=== PATIENT | female | born 1965 | race Caucasian/White ===

== ENCOUNTER 2023-09-02 16:08 | Emergency (ER) | payer OTHER, SELFPAY ==
--- NOTE | ~2023-09-02 | CT_ITS ---
EXAMINATION: CT ABDOMEN AND PELVIS WITHOUT CONTRAST CLINICAL INFORMATION: Right flank pain. COMPARISON: None available. TECHNIQUE: Multidetector volumetric imaging was performed from the superior aspect of the liver through the pubic symphysis. Sagittal and coronal reformatted images were obtained on the technologist's workstation. This CT examination was performed using dose optimization techniques as appropriate, variously including the following: *Automated exposure control *Adjustment of mA and/or kV according to patient size (this includes techniques or standardized protocols for targeted exams where dose is matched to indication/reason for exam; i.e. extremities or head) *Use of iterative reconstruction technique DLP: 465 mGy-cm FINDINGS: LUNG BASES: The visualized lung bases are unremarkable. LIVER, GALLBLADDER, AND BILIARY TREE: The liver is normal in size, shape, and attenuation. No focal hepatic lesion or biliary ductal dilatation is present. The gallbladder is unremarkable with no evidence of radiopaque gallstones, gallbladder wall thickening, or obvious pericholecystic inflammatory changes. PANCREAS: Unremarkable. SPLEEN: Unremarkable. ADRENAL GLANDS: Unremarkable. KIDNEYS AND URETERS: The kidneys are normal in size, shape, and attenuation. No hydronephrosis, hydroureter, or calculi seen. There is mild bilateral perinephric fat stranding. BLADDER: Unremarkable. GASTROINTESTINAL TRACT: Stomach, small bowel, and colon are normal in caliber. No bowel wall thickening or surrounding inflammatory changes. Appendix is normal. No intraperitoneal free fluid or free air. ABDOMINAL WALL: Small fat-containing right inguinal hernia. No bowel involvement. LYMPH NODES: Normal. VASCULAR: Unremarkable. PELVIC VISCERA: Uterus is surgically absent. There is a 2.3 x 2.3 x 2.2 cm fat-containing lesion at the right ovary, most consistent with a dermoid cyst. OSSEOUS STRUCTURES: Grade 1 anterolisthesis of L4 on L5. Mild left convex lumbar scoliosis. Severe degenerative disc disease at L5-S1. Marked multilevel facet arthropathy in the lumbar spine. CT/CT abdomen pelvis wo IV con IMPRESSION: 1. No acute intra-abdominal or intrapelvic abnormalities. No nephrolithiasis or evidence of obstructive uropathy. 2. A 2.3 cm fat-containing lesion in the right ovary, most consistent with a dermoid cyst. 3. Small fat-containing right inguinal hernia. Fleischner guidelines were followed.
[2023-09-02 16:13] VITALS: BP 124/78; BP 124/92; PULSE 103; PULSE 96; RESP 22; TEMP 37.2; O2SAT 100; O2SAT 97; BMI 25.2
[2023-09-02 16:40] LABS: MANUAL DIFF FLAG NO
[2023-09-02 16:41] LABS: Basophils Percent Auto 0.3 % (0-2); Eosinophils Percent Auto 0.2 % (0-4); Hematocrit 39.4 % (37.0-47.0); Hemoglobin 14.5 g/dl (12.0-16.0); Imm Gran Abs Auto 0.07 X10*3/uL (0.00-0.03); Imm Gran Pct Auto 0.6 % (0.0-0.4); Lymphocytes Absolute Auto 1.2 X10*3/uL (1.2-4.9); Lymphocytes Percent Auto 10.1 % (20-40); Mean Corpuscular HGB Conc 36.8 g/dl (31.0-35.0); Mean Corpuscular Hemoglobin 36.3 pg (27.0-33.0); Mean Corpuscular Volume 98.7 fL (80.0-98.0); Mean Platelet Volume 8.7 fL (9.4-12.3); Monocytes Absolute Auto 0.8 X10*3/uL (0.1-1.2); Monocytes Percent Auto 6.7 % (2-11); Neutrophils Absolute Auto 9.5 x10*3/uL (2.0-8.3); Neutrophils Percent Auto 82.1 % (45-73); Platelet Count 289 X10*3/uL (160-400); Red Blood Count 3.99 X10*6/uL (4.20-5.50); Red Cell Distribution Width 12.6 % (11.0-16.0); White Blood Count 11.5 X10*3/uL (4.8-10.8)
[2023-09-02 16:44] LABS: Appearance Urine Clear; Color Urine Yellow; Glucose Urine UA Negative (Negative); Leukocyte Esterase Urine Negative (Negative); Nitrite Urine Negative (Negative); PH >= 9.0 (5.0-9.0); Specific Gravity - Urine 1.015 (1.005-1.025); UMIC TRIGGER UACC YES; Urine Blood Negative (Negative); Urine Ketones 15 mg/dL (Negative); Urine Protein 30 (1+) mg/dL (Neg-Trace)
[2023-09-02 17:00] LABS: Alanine Aminotransferase 49 U/L (0-31); Albumin Level 4.4 g/dL (3.5-5.0); Alkaline Phosphatase 82 U/L (39-117); Anion Gap 20 (12-20); Aspartate Amino Transferase 66 U/L (5-31); Bacteria Urine None Seen (None Seen); Bilirubin Total 0.8 mg/dL (0.0-1.0); Blood Urea Nitrogen 9 mg/dL (9-16); Calcium 10.4 mg/dL (8.4-10.2); Carbon Dioxide 21 mmol/L (22-29); Chloride 100 mmol/L (96-108); Estimated Glomerular Filt Rate > 60; Glucose Random 125 mg/dL (60-115); Hyaline Casts Urine 0-2 /LPF (0-2); Potassium 3.7 mmol/L (3.3-5.1); RBC Urine 0-2 /HPF (0-2); Sodium 137 mmol/L (135-145); Total Protein 7.8 g/dL (6.5-8.0); WBC Urine 0-5 /HPF (0-5)
[2023-09-02 20:50] VITALS: BP 132/76; PULSE 79; RESP 17; TEMP 36.8; O2SAT 96
--- NOTE | 2023-09-02 21:30 | ED.ABDPAIN ---
HPI - Abdominal Pain General Chief Complaint: Abdominal Pain Stated Complaint: LOW R BACK PAIN 8/10 PER EMS Time Seen by Provider: 09/02/23 21:23 Source: patient Mode of arrival: ambulatory Limitations: no limitations History of Present Illness ED Provider: Dr. Elyse Damian HPI narrative: Patient comes to the emergency room complaining of right-sided flank pain right middle back pain that started last night. Patient states that approximately 24 hours ago, patient was having an achy discomfort on the right-sided flank pain and right middle back pain. Patient states that she was hoping that resting and going to sleep would fix it and she would wake up feeling normal. Patient states that when she woke up, the pain had intensified. Patient denies any heavy lifting, no falls or any trauma. Patient denies nausea vomiting or diarrhea, no abdominal pain. She denies pain in the middle of the back or the left side. Everything is on the right side. Patient denies radiation of the pain towards the legs or abdomen. Related Data Previous Rx's ?Medication ?Instructions ?Recorded cyclobenzaprine 10 mg tablet 10 mg PO TID PRN muscle spasm #10 09/03/23 tabs ketorolac 10 mg tablet 10 mg PO Q8H PRN pain #10 tabs 09/03/23 Allergies Allergy/AdvReac Type Severity Reaction Status Date / Time amoxicillin Allergy Rash Verified 09/02/23 16:17 cephalexin [From Keflex] Allergy Rash Verified 09/02/23 16:17 Review of Systems Review of Systems Constitutional : No Weight loss, No Fever, No Chills, No Night Sweats, No Fatigue, No Malaise ENT/Mouth : No Hearing loss, No Ear Pain, No Nasal Congestion, No Sinus Pain, No Hoarseness, No sore throat, No Rhinorrhea, No Swallowing Difficulty Eyes: No Eye Pain, No Swelling, No Redness, No Foreign Body, No Discharge, No Vision Changes Cardiovascular : No Chest Pain, No SOB, No Dyspnea on Exertion, No Orthopnea, No Edema, No Palpitations Respiratory : No Cough, No Sputum, No Wheezing, No Smoke Exposure, No Dyspnea Gastrointestinal : No Nausea, No Vomiting, No Diarrhea, No Constipation, No abdominal Pain, No Hematochezia, No Melena Genitourinary : no irregular bleeding, complaining of mild intermittent Dysuria, No Urinary Frequency, No Hematuria, No Urinary Incontinence, No Urgency, complaining of Flank Pain, No Urinary Flow Changes, No Hesitancy Musculoskeletal : Complaining of right-sided/right flank pain, No joint pain, No Myalgias, No Joint Swelling Skin : No Skin Lesions, No rash Neuro : No Weakness, No Numbness, No Paresthesias, No Loss of Consciousness, No Dizziness, No Headache Psych : No Anxiety/Panic, No Depression, No SI/HI/AH/VH, No Social Issues, Heme/Lymph: No Bruising, No Bleeding,No Lymphadenopathy Endocrine : No Polyuria, No Polydipsia, No Temperature Intolerance [facility] Past Medical History Medical History (Updated 09/03/23 @ 00:33 by Elyse Damian MD) Hypertension Social History Social History Advance Directives: No Advance Directives Information Provided: No Do you have a plan to hurt others: No Plan Physical Exam ED Vital Signs: Vital Signs - 24 hr 09/02/23 16:13 09/02/23 20:50 09/02/23 22:12 Temperature 98.9 F 98.3 F 98.0 F Pulse Rate 103 H 79 82 Respiratory Rate 22 H 17 17 Blood Pressure 124/78 132/76 128/83 Pulse Oximetry 100 96 100 Oxygen Delivery Method Room Air Room Air Room Air BMI result Body Mass Index 25.2 Const Other: Appearance: Alert. Oriented X3. No acute distress. Eyes: Pupils equal, round and reactive to light. ENT: Pharynx normal. Neck: Normal inspection. Neck supple. No lymph nodes noted. No crepitus CVS: Normal heart rate and rhythm. Pulses normal. Normal S1 and S2 Respiratory: No respiratory distress. Breath sounds normal. No Wheezing. No rales Abdomen: Soft and nontender. No rigidity. No distention. Back: No pain to palpation on the right side of the back or cervical/thoracic/lumbar spine. Pain to palpation on them middle posterior aspect of the back and also right flank. Skin: Skin warm and dry. Normal skin color. Normal skin turgor. Extremities: No lower extremity edema. No Lacerations. No Rash Neuro: Oriented X 3. No motor deficit. No sensory deficit. Moving all extremities. No slurred speech. CN 2 through 12 grossly intact Psych: calm, cooperative, normal affect Course Course Course Narrative: -patient receiving IV fluids, ketorolac, CT scan of the abdomen/pelvis to rule out ureterolithiasis Medical Decision Making Medical Decision Making [facility] Narrative: -my interpretation of labs: White blood cell count slightly elevated 11.5, normal hemoglobin, hematocrit and platelets. Patient's LFTs within normal limits, no significant abnormalities. Urinalysis negative for UTI, there slight amount of protein and ketones in the urine. -patient was given IV fluids, Toradol, oral patient states that she feels much better. -my interpretation of CT scan, no obvious abnormality. -patient likely having musculoskeletal spasms. Differential Diagnosis Differential Diagnoses: The differential diagnosis associated with the presentation includes (Musculoskeletal spasms, ureterolithiasis, UTI, pyelonephritis) Admission/Observation Consideration of admission/observation: Escalation of care including admission/observation considered (Given patient's presentation, observation was considered) Lab Data [facility] Lab Attestation statement: I reviewed the patient's lab results. 09/02/23 16:32 09/02/23 16:32 Labs: Lab Results 09/02/23 Range/Units 16:32 WBC 11.5 H (4.8-10.8) X10*3/uL RBC 3.99 L (4.20-5.50) X10*6/uL Hgb 14.5 (12.0-16.0) g/dl Hct 39.4 (37.0-47.0) % MCV 98.7 H (80.0-98.0) fL MCH 36.3 H (27.0-33.0) pg MCHC 36.8 H (31.0-35.0) g/dl RDW 12.6 (11.0-16.0) % Plt Count 289 (160-400) X10*3/uL MPV 8.7 L (9.4-12.3) fL Immature Gran % (Auto) 0.6 H (0.0-0.4) % Neut % (Auto) 82.1 H (45-73) % Lymph % (Auto) 10.1 L (20-40) % [place] % (Auto) 6.7 (2-11) % Eos % (Auto) 0.2 (0-4) % Baso % (Auto) 0.3 (0-2) % Lymph # (Auto) 1.2 (1.2-4.9) X10*3/uL [place] # (Auto) 0.8 (0.1-1.2) X10*3/uL Eos # (Auto) 0.0 (0.0-0.4) X10*3/uL Baso # (Auto) 0.0 (0.0-0.2) X10*3/uL Abs Immat Gran (auto) 0.07 H (0.00-0.03) X10*3/uL Absolute Neuts (auto) 9.5 H (2.0-8.3) x10*3/uL Absolute Nucleated RBC 0.000 (0.0-0.012) X10*3/uL Nucleated RBC % (auto) 0.0 (0.0-0.2) /100WBC Sodium 137 (135-145) mmol/L Potassium 3.7 (3.3-5.1) mmol/L Chloride 100 (96-108) mmol/L Carbon Dioxide 21 L (22-29) mmol/L Anion Gap 20 (12-20) BUN 9 (9-16) mg/dL Creatinine 0.86 (0.5-1.4) mg/dL Estim Creat Clear Calc 62.0 Estimated GFR > 60 Random Glucose 125 H (60-115) mg/dL Calcium 10.4 H (8.4-10.2) mg/dL Total Bilirubin 0.8 (0.0-1.0) mg/dL AST 66 H (5-31) U/L ALT 49 H (0-31) U/L Alkaline Phosphatase 82 (39-117) U/L Total Protein 7.8 (6.5-8.0) g/dL Albumin 4.4 (3.5-5.0) g/dL Urine Color Yellow Urine Appearance Clear Urine pH >= 9.0 (5.0-9.0) Ur Specific [place] 1.015 (1.005-1.025) Urine Protein 30 (1+) H (Neg-Trace) mg/dL Urine Glucose (UA) Negative (Negative) mg/dL Urine Ketones 15 (Negative) mg/dL Urine Blood Negative (Negative) Urine Nitrite Negative (Negative) Ur Leukocyte Esterase Negative (Negative) Urine RBC 0-2 (0-2) /HPF Urine WBC 0-5 (0-5) /HPF Ur Squamous Epith Cells 3-5 (0-2) /HPF Urine Bacteria None Seen (None Seen) Hyaline Casts 0-2 (0-2) /LPF Independent Interpretation I performed an independent interpretation of an: CT Scan Radiology Impression Discussion of test interpretation with radiology: I have reviewed the radiologist's reading. Radiologist Impression: INDINGS: LUNG BASES: The visualized lung bases are unremarkable. LIVER, GALLBLADDER, AND BILIARY TREE: The liver is normal in size, shape, and attenuation. No focal hepatic lesion or biliary ductal dilatation is present. The gallbladder is unremarkable with no evidence of radiopaque gallstones, gallbladder wall thickening, or obvious pericholecystic inflammatory changes. PANCREAS: Unremarkable. SPLEEN: Unremarkable. ADRENAL GLANDS: Unremarkable. KIDNEYS AND URETERS: The kidneys are normal in size, shape, and attenuation. No hydronephrosis, hydroureter, or calculi seen. There is mild bilateral perinephric fat stranding. BLADDER: Unremarkable. GASTROINTESTINAL TRACT: Stomach, small bowel, and colon are normal in caliber. No bowel wall thickening or surrounding inflammatory changes. Appendix is normal. No intraperitoneal free fluid or free air. ABDOMINAL WALL: Small fat-containing right inguinal hernia. No bowel involvement. LYMPH NODES: Normal. VASCULAR: Unremarkable. PELVIC VISCERA: Uterus is surgically absent. There is a 2.3 x 2.3 x 2.2 cm fat-containing lesion at the right ovary, most consistent with a dermoid cyst. OSSEOUS STRUCTURES: Grade 1 anterolisthesis of L4 on L5. Mild left convex lumbar scoliosis. Severe degenerative disc disease at L5-S1. Marked multilevel facet arthropathy in the lumbar spine. CT/CT abdomen pelvis wo IV con IMPRESSION: 1. No acute intra-abdominal or intrapelvic abnormalities. No nephrolithiasis or evidence of obstructive uropathy. 2. A 2.3 cm fat-containing lesion in the right ovary, most consistent with a dermoid cyst. 3. Small fat-containing right inguinal hernia. Medications Administered Discontinued Medications Generic Name Dose Route Start Last Admin Trade Name Freq PRN Reason Stop Dose Admin Sodium Chloride 1,000 mls @ 999 mls/hr 09/02/23 21:28 09/02/23 21:58 Ns IVCONT 09/02/23 22:28 999 mls/hr .Q1H1M ONE Administration Ketorolac Tromethamine 30 mg 09/02/23 21:28 09/02/23 21:57 Ketorolac Tromethamine 30 Mg/Ml Vial IVPUSH 09/02/23 21:29 30 mg ONCE ONE Administration Critical Care Time Critical Care Time Critical Care Time: Yes Total Critical Care Time: 30 Attestation: I have personally provided critical care time. Time includes review of lab data, radiology results, discussion with consultants, and monitoring for potential decompensation. Intervention performed as documented. Discharge Plan Discharge Clinical Impression: Musculoskeletal pain Patient Disposition: Home, Self-Care Instructions: Musculoskeletal Pain (ED) Additional Instructions: Please follow-up with your primary care physician tomorrow. If you have any worsening or new symptoms, please return to the emergency room or call 911 Prescriptions: New ketorolac 10 mg tablet 10 mg PO Q8H PRN (Reason: pain) Qty: 10 0RF Rx Instructions: Do not use this medication with ibuprofen or any other NSAIDs cyclobenzaprine 10 mg tablet 10 mg PO TID PRN (Reason: muscle spasm) Qty: 10 0RF Rx Instructions: Do not drive or use machinery after taking this medication Print Language: [place]
[2023-09-02] MEDS: Ketorolac Tromethamine 30 MG/ML VIAL IVPUSH (21:57)
[2023-09-02] MEDS: 0.9 % Sodium Chloride 1,000 ML 999 ML IVCONT (21:58)
[2023-09-02 22:12] VITALS: BP 128/83; PULSE 82; RESP 17; TEMP 36.7; O2SAT 100
[2023-09-03 01:31] VITALS: BP 119/72; PULSE 88; RESP 17; TEMP 37.1; O2SAT 100
== END 2023-09-03 01:48 | disposition home or self-care (01) ==
PROVIDERS: Emergency Provider Emergency Medicine
DX: M79.10 Myalgia, unspecified site (principal); R10.2 Pelvic and perineal pain; M54.50 Low back pain, unspecified; R10.9 Unspecified abdominal pain; R11.2 Nausea with vomiting, unspecified; Z79.899 Other long term (current) drug therapy
CPT/HCPCS: 36415; 74176; 80053; 81001; 85025; 96361; 96374; 99284; 99285; J1885